=== PATIENT | female | born 1975 | race Caucasian/White ===

== ENCOUNTER 2025-01-13 08:45 | Outpatient (REF) | payer MEDICAID, SELFPAY ==
--- OUTSIDE RECORDS SUMMARY | 2025-01-19 09:04 | XMS_ITS | Clinical Summary ---
Author Organization [facility] Address [address] [facility] [address] [place] [address] Care Team Providers Care Validation Technician Name Role Phone López Simms MD Primary Care Prov ider Allergies No known active allergies Medications folic acid (Folvite) 1 MG tablet Take 1 tablet by mouth at bed time. 2 Active ibuprofen 400 MG tablet take 1 tablet by oral route every 4 - 6 hours as needed for pain 2 Active thiamine (Vitamin B-1) 100 MG tablet Take 1 tablet by mouth. 2 Active loratadine-pseud oephedrine ER (Loratadine-D 12HR) 5-120 MG 12 hr tabletIndication s:Viral upper respiratory tract infection Take 1 tablet by mouth 2 times daily for 15 days. Do not crush, chew, or split. 30 tablet 3 Active clotrimazole (Lotrimin) 1 % creamIndications :Seborrheic dermatitis Apply topically 2 times daily. 60 g 3 Active hydrocortisone 2.5 % creamIndications :Seborrheic dermatitis Apply topically 2 times daily. 60 g 3 Active D3 Super Strength 50 MCG (1999) capsule TOME BASHIR [place] 90 capsule 3 3 Active venlafaxine XR (Effexor XR) 150 MG 24 hr capsuleIndicatio ns:Major depressive disorder with psychotic features (CMS/HCC) TOME BASHIR [place] 90 capsule 1 3 Active risperiDONE (RisperDAL) 1 MG tabletIndication s:Major depressive disorder with psychotic features (CMS/HCC) TOME BASHIR TABLETA POR VIA ORAL AL ACOSTARSE 90 tablet 1 3 Active famotidine (Pepcid) 20 MG tablet Take 1 tablet (20 mg) by mouth 2 times daily. 60 tablet 1 5 01/14/20 26 Active amoxicillin (Amoxil) 500 MG capsule Take 2 capsules (1,000 mg) by mouth 2 times daily for 14 days. 56 capsule 5 01/29/20 25 Active clarithromycin (Biaxin) 500 MG tablet Take 1 tablet (500 mg) by mouth 2 times daily for 14 days. 28 tablet 5 01/29/20 25 Active omeprazole (PriLOSEC) [address] capsule Take 1 capsule (20 mg) by mouth before breakfast and before evening meal for 14 days. Do not crush or chew. 28 capsule 5 01/29/20 25 Active Hospital, Clinic, or Other Facility Administered Medication Ordered Dose Route Frequency Start Date End Date Status aspirin chewable tablet 324 mgIndications:Chest pain, unspecified type 324 mg PO Once 01/13/2025 01/13/2025 Ended Active Problems Problem Noted Date Diagnosed Date H. pylori infection 01/14/2025 Skin mole 10/30/2023 Assessment & Plan (10/30/2023 11:14 PM EDT): Lesion near nose bridge, will refer to dermatology for evaluation and removal Viral upper respiratory tract infection 07/02/19 Assessment & Plan (07/02/2022 3:40 PM EST): Recommended supportive care. Will send decongestant. F/u with PCP PRN and rtc if worsening symptoms Seborrheic dermatitis 07/02/2022 Assessment & Plan (07/02/2022 3:40 PM EST): Likely SD, will send 2 prong approach with steroid and antifungal. Major depressive disorder with psychotic feature s 06/12/2022 Assessment & Plan (07/24/2022 9:46 AM EST): Lifetime history of depression, trauma history. Previous suicide attempt in her 20s. Presenting symptoms included nightmares, mild auditory hallucinations (her name called). Doing very well. Auditory hallucinations resolved. Continue current med regimen: Risperidone 1 mg at bedtime, Venlafaxine XR 150 mg once daily. She will F/U with therapist as usual. F/U with me in 6-8 weeks. She agrees with the plan. Assessment & Plan (06/12/2022 10:01 AM EST): Lifetime history of depression, trauma history. Previous suicide attempt in her 20s. Presenting symptoms included nightmares, mild auditory hallucinations (her name called). Generally doing well, although intermittent mild passive SI without plan/intent. Auditory hallucinations resolved. Continue current med regimen: Risperidone 1 mg at bedtime, Venlafaxine XR 150 mg once daily. She will F/U with [facility] as planned. F/U with me in 6-8 weeks. She agrees with the plan. Alcohol abuse 06/12/2022 Assessment & Plan (07/24/2022 9:46 AM EST): She has had minimal alcohol recently and has good insight into the effects of alcohol on her mood. Assessment & Plan (06/12/2022 10:03 AM EST): Reviewed with patient that drinking made her feel much worse emotionally and she has motivation to avoid this. Discussed strategies to avoid alcohol in social situations. Iron deficiency anemia due to chronic blood loss 07/02/2018 Assessment & Plan (10/30/2023 11:15 PM EDT): Will order new labs for guidance of thrapy Assessment & Plan (09/28/2022 10:16 AM EDT): Patient taking iron replacement daily, no episode of profuse bleeding, she had her colonoscopy done in 10/13 for 10 years, saw ob-crop picker. Will place order for new cbc and iron for guidance of therapy Assessment & Plan (08/09/2022 10:01 AM EST): Patient on oral replacement, no side effects from treatment, pending follow up with ob-crop picker next month, will follow up in 2 months to repeat blood work Assessment & Plan (05/28/2022 11:16 AM EST): Will order new labs, refers having moderate vaginal blood loss in her mentrual period. Obesity 07/02/2018 Vitamin D deficiency 07/02/2018 Assessment & Plan (05/28/2022 11:18 AM EST): New labs will be ordered for guidance of therapy Resolved Problems Problem Noted Date Diagnosed Date Resolved Date Mood disorder 07/02/2018 06/12/2022 Assessment & Plan (05/28/2022 11:19 AM EST): Followed at psychopharmacologic clinic, denied suidicdal/homicidal ideas, will order TSH Encounters Date Type Department Care Team Description 01/14/2025 Orders Only [facility] [address] [place] [phone] Ray Edge MD H. pylori infection (Primary Dx) 01/14/2025 Results Follow-Up [facility] [address] [address] Ray Edge MD Helicobacter pylori Antigen, EIA, Stool 01/13/2025 9:20 AM EDT Office Visit [facility] [address] [phone] Ray Edge MD Epigastric pain (Primary Dx); Chest pain, unspecified type 01/13/2025 Telephone [facility] MED[facility] [address] [place] [phone] Mariela Gutierrez, SUPERVISOR [employer] Expect 01/13/2025 Travel 01/12/2025 Telephone [facility] [address] [place], [place] [phone] López Simms MD Nurse Triage from Last 3 Months Immunizations Immunization Administration Dates Next Due INFLUENZA INJECTABLE QUADRIV ALANT CCIIV4 MDCK Multi-dose vial 06/22/2019 Influenza injectable quadriv alent IIV4 with preservative 04/18/2018,06/10/2017 Influenza injectable quadriv alent preservative free 05/31/2022,03/30/2021,04/07/2020,2016,07/02/2016,08/25/2015 Moderna Covid-19 Vaccine 12+ 07/20/2021,11/12/19 21,10/14/2020 Tdap 08/25/2015 Family History Medical History Relation Name Comments Diabetes Father Hypertension Father Throat cancer Maternal Grandmother Diabetes Mother Hypertension Mother Colon cancer Mother's Brother Coronary artery disease Sister Relation Name Status Comments Father Maternal Grandmother Mother Mother's Brother Sister Social History Tobacco Use Types Packs/Day Years Used Date Smoking Tobacco: Never Passive Smoke Exposure: Never Smokeless Tobacco: Never Tobacco Cessation:Counseling Given: Not Answered Alcohol Use Standard Drinks/Week Comments Never 0 (1 standard drink = 0.6 oz pur e alcohol) Depression Answer Date Recorded Patient Health Questionnaire-9 Score 2 10/28/2023 Patient Health Questionnaire-9 Score 2 10/28/2023 Last PHQ-9: Questionnaire Data Not on file 0 10/28/2023 Housing Stability Answer Date Recorded What is your housing situation today? I have mone prieto 10/21/[address] you li ve. Do you have problems with any of the following? None of the above 10/21/2023 Food Insecurity Answer Date Recorded Within the past 12 months, y ou worried that your food would run out before you got money to buy more: Never True 10/21/2023 Within the past 12 months,th e food you bought just didn't last and you didn't have enough money to get more: Never True Transportation Answer Date Recorded In the past 12 months, has l ack of transportation kept you from medical appts, meetings, work or from getting things needed for daily living? No 10/21/2023 Utilities Answer Date Recorded In the past 12 months, has t he electric, gas, oil or water company threatened to shut off services in your home? No 10/21/2023 Depression Answer Date Recorded Patient Health Questionnaire-2 Score 2 10/28/2023 Comments Unknown Sex and Gender Information Value Date Recorded Sex Assigned at Female 04/23/2022 10:16 AM EDT Legal Sex Female 10:16 AM EDT Gender Identity Female 04/23/2022 10:16 AM EDT Sexual Orientation Straight 04/23/2022 10 :16 AM EDT Last Filed Vital Signs Vital Sign Reading Time Taken Comments Blood Pressure 133/88 01/13/2025 8:59 AM EDT Pulse 85 01/13/2025 8:59 AM EDT Temperature 36.7 C (98.1 F) 01/13/2025 8:59 AM EDT Respiratory Rate 20 01/13/2025 8:59 AM EDT Oxygen Saturation 98% 01/13/2025 8:59 AM EDT Inhaled Oxygen Concentration - - Weight 76.3 kg (168 lb 3.2 oz) 01/13/2025 8:59 A M EDT Height 157.5 cm (5' 2 ) 05/13/2024 8:45 AM EST Body Mass Index 30.76 05/13/2024 8:45 AM EST Plan of Treatment Health Maintenance Due Date Last Done Comments CT Colonography 1973 FIT DNA/Cologuard 1975 FIT 1975 FOBT 1975 Sigmoidoscopy 1975 Disability Screening 1973 Alcohol/Substance Use Screening 1985 Family Planning (PISQ) 1988 Hepatitis B Vaccines (1 of 3 - 19+ 3-dose series) 1992 Pneumococcal Vaccine: 50+ Years (1 of 1 - PCV) 2023 COVID-19 Vaccine ( - season) 2024 07/20/2021, 11/11/2020, 10/14/2020 SDOH Screening 10/20/2024 10/21/2023 Depression Screening 10/27/2024 10/28/2023, 10/28/19 24 Influenza Vaccine (#1) 2025 , 07/03/2024, 06/10/2023, Additional history exists DTaP/Tdap/Td Vaccines (2 - Td or Tdap) 08/24/2025 08/25/2015 Pap Smear 09/04/2025 09/04/2022 Tobacco Screening 01/13/2026 01/13/2025 Mammogram 09/03/2026 09/03/2024, 07/26/2023 Cervical Cancer Screening 09/05/2027 HPV/Cotest 09/05/2027 09/04/2022 Lipid Panel 10/30/2028 10/31/2023, 0511/2021, 04/05/2020 Colonoscopy 10/19/2031 10/18/2021 Colorectal Cancer Screening 10/19/2031 RSV Patients and Patients Aged 60 years or older (1 - 1-dose 75+ series) 2048 Zoster Vaccines Completed 12/07/2023, 09/18/2023 HIV Screening Completed 02/27/2024, 12/23, 09/09/2023, Additional history exists Hepatitis C Screening Completed 02/27/2024 , 01/14/2024, 09/09/2023, Additional history exists HIB Vaccines Aged Out No longer eligi ble based on patient's age to complete this topic HPV Vaccines Aged Out No longer eligi ble based on patient's age to complete this topic Hepatitis A Vaccines Aged Out No long er eligible based on patient's age to complete this topic IPV Vaccines Aged Out No longer eligi ble based on patient's age to complete this topic Meningococcal B Vaccine Aged Out No l onger eligible based on patient's age to complete this topic Meningococcal Vaccine Aged Out No henny shawna eligible based on patient's age to complete this topic RSV under 20 months Aged Out No longe r eligible based on patient's age to complete this topic Rotavirus Vaccines Aged Out No longer eligible based on patient's age to complete this topic Procedures Procedure Name Priority Date/Time Associated Diagnosis Comments ECG 12-LEAD Routine 01/13/2025 1:25 PM EDT Chest pain, unspecified type HELICOBACTER PYLORI AG, EIA, STOOL Routine 01/13/2025 10:50 AM EDT Epigastric pain ECG 12-LEAD Routine 01/13/2025 10:40 AM EDT Chest pain, unspecified type BI MAMMOGRAM SCREENING TOMOSYNTHESIS BILATERAL Routine 09/03/2024 9:58 AM EDT HEPATITIS C ANTIBODY Routine 02/27/2024 2:24 PM EDT HIV 1/2 ANTIGEN/ANTIBODY, FOURTH GENERATION W/RFL Routine 02/27/2024 2:24 PM EDT LIPID PANEL, STANDARD Routine 10/31/2023 12:46 PM EDT Class 1 obesity due to excess calories without serious comorbidity with body mass index (BMI) of 33.0 to 33.9 in adult HPV MRNA E6/E7 REFLEX TO HPV 16, 18/45 Routine 09/04/2022 10:52 AM EDT Iron deficiency anemia due to chronic blood loss PAP SMEAR Routine 09/04/2022 10:52 AM EDT Iron deficiency anemia due to chronic blood loss HM COLONOSCOPY Routine 10/18/2021 12:16 PM EDT from Last 3 Months or Most Recently Relevant to Health Maintenance Results * (ABNORMAL) Helicobacter pylori??Antigen, EIA, Stool (01/13/2025 10:50 AM EDT) H pylori Ag Stool SEE NOTE(A) [facility] Comment:HELICOBACTER PYLORI AG, EIA, STOOL Micro Number: [id number] Test Status: Final Specimen Source: Stool Specimen Quality: Adequate H.pylori Ag: Detected Reference Range: Not DetectedTHIS TEST WAS PERFORMED AT:[facility] [address] [phone] OLVERA MD Stool Rectal contents / Unknown 01/13/2025 10:50 AM EDT 01/13/2025 1:28 PM EDT us Ray Edge MD LAB BODY FLUIDS AND STOOLS ORDER KATE Final Result [facility] [address] [place] [phone] * ECG 12 lead (01/13/2025 10:40 AM EDT) us Ray Edge MD ECG ORDERABLES Final Result * BI Mammogram Screening Tomosynthesis Bilateral (09/03/2024 9:58 AM EDT) Anatomical Region Laterality Modality Breast Bilateral Mammography 09/03/2024 9:58 AM EDT Narrative 09/11/2024 3:56 PM EDT [address] [place] [address] Mammography Report Signed Patient: Sherlyn Caicedo MR#: [id number] : 1975 Acct:[id number] Age/Sex: 49 / F ADM Date: 09/03/24 Loc: HO.MAMMO Attending Dr: López Sol MD Ordering Physician: López Simms MD Res ults: 1Negative Date of Service: 09/03/24 Follow Up: 1 Year From Orig inal Mammogram Procedure(s): MM tomosynthesis screening BI Accession Number(s): [id number] cc: López Simms MD EXAMINATION: MM SCREENING DIGITAL BREAST TOMOSYNTHESIS, BILATERAL CLINICAL INFORMATION: Screening. Asymptomatic. COMPARISON: Mammography: Comparison is made with available priors TECHNIQUE: Digital breast mammography with tomosynthesis is performed in both the craniocaudal and mediolateral oblique views along with computer-aided detection (CAD). FINDINGS: The breasts are heterogeneously dense, which may obscure small masses (ACR BI-RADS breast composition Category c). There are no significant masses, abnormal calcifications, or other abnormalities. MM/MM tomosynthesis screening BI IMPRESSION: No mammographic evidence of malignancy. ASSESSMENT: BI-RADS BI-RADS 1 - Negative RECOMMENDATION: Routine annual mammography screening. 1 year F/U This examination should not preclude the clinical evaluation of a suspicious palpable abnormality. This patient's information was entered into a reminder system with a target due date for their next mammogram. Electronically signed by: Evie Macias DO 09/11/2024 03:53 PM EDT Dictated By: Evie Macias DO Signed By: <Electronically signed by Evie Macias DO in OV> 09/11/24 1553 DD/ 0958 TD/TT: 09/03/24 1012 Retail Shift Manager: Procedure Note Donotuseinterpreter, Image - 09/11/[address] [place] [address] Mammography Report Signed Patient: Antonio Caicedo#: [id number] : 1975Acct:[id number] Age/Sex: 49 / FADM Date: 09/03/24 Loc: HO.MAMMO Attending Dr: López Sol MD Ordering Physician: López Simms ults: 1Negative Date of Service: 09/03/24Follow Up: 1 Year From Orig ina Mammogram Procedure(s): MM tomosynthesis screening BI Accession Number(s): [id number] cc: López Simms MD EXAMINATION: MM SCREENING DIGITAL BREAST TOMOSYNTHESIS, BILATERAL CLINICAL INFORMATION: Screening. Asymptomatic. COMPARISON: Mammography: Comparison is made with available priors TECHNIQUE: Digital breast mammography with tomosynthesis is performed in both the craniocaudal and mediolateral oblique views along with computer-aided detection (CAD). FINDINGS: The breasts are heterogeneously dense, which may obscure small masses (ACR BI-RADS breast composition Category c). There are no significant masses, abnormal calcifications, or other abnormalities. MM/MM tomosynthesis screening BI IMPRESSION: No mammographic evidence of malignancy. ASSESSMENT: BI-RADS BI-RADS 1 - Negative RECOMMENDATION: Routine annual mammography screening. 1 year F/U This examination should not preclude the clinical evaluation of a suspicious palpable abnormality. This patient's information was entered into a reminder system with a target due date for their next mammogram. Electronically signed by: Evie Macias DO 09/11/2024 03:53 PM EDT Dictated By: Evie Macias DO Signed By: <Electronically signed by Evie Macias DO in OV> 09/11/24 1553 DD/ 0958 TD/TT: 09/03/24 1012 Retail Shift Manager: us López Sol MD IMG BI PROCEDURES Final Result * Hepatitis C Ab (02/27/2024 2:24 PM EDT) Hepatitis C Antibody Nonreactive Nonreactive [facility] Comment:Antibodies to HCV no t detected; does not exclude early acuteHCV infection. 02/27/2024 2:24 PM EDT 02/27/2024 4:29 PM EDT Generic External Data Provider LAB BLOOD ORDERAB LES Final Result Performing Organization Address [facility]/ZIP Co de Phone Number [facility] [address] [place] [phone] * HIV-1/2 Antigen and Antibodies, Fourth Generation, with Reflexes (02/27/2024 2:24 PM EDT) HIV AB/AG Nonreactive Nonreactive [facility] Comment:HIV-1 p24 Ag and/or HIV-1/HIV-2 Ab not detected.A test result that is nonreactive does not exclude thepossibility of exposure to or infection with HIV-1 and/orHIV-2. Nonreactive results in this assay for individualswith prior exposure to HIV-1 and/or HIV-2 may be due toantigen and antibody levels that are below the limit ofdetection of this assay.The [employer] HIV Ag/Ab Combo assay result andsupplemental assay results should be interpreted inconjunction with the patient's clinical presentation,history and other laboratory results. If the results areinconsistent with clinical evidence, additional testing issuggested to confirm the result. 02/27/2024 2:24 PM EDT 02/27/2024 4:29 PM EDT us Generic External Data Provider LAB BLOOD ORDERAB LES Final Result Performing Organization Address [facility]/ZIP Co de Phone Number [facility] [address] [place] [phone] * (ABNORMAL) Lipid Panel, Standard (10/31/2023 12:46 PM EDT) Triglycerides 135 <150 mg/dL [facility] Comment:Desirable Triglyceri de: less than 150 mg/dLBorderline High Triglyceride 150-199 mg/dLHigh Triglyceride: 200-499 mg/dLVery High Triglyceride: greater than or equal to 5OO mg/dL Cholesterol 220(H) <200 mg/dL [facility] Comment:Desirable Cholestero l: less than 200 mg/dLBorderline High Cholesterol: 200-239 mg/dLHigh Cholesterol: greater than 239 mg/dL LDL Cholesterol Calculated 124(H) <100 mg/dL [facility] Comment:Desirable LDL: less than 100 mg/dLNear Optimal/Above Optimal LDL: 110- 129 mg/dLBorderline High LDL: 130-159 mg/dLHigh LDL: 160-189 mg/dLVery High LDL: greater than or equal to 190 mg/dL HDL Cholesterol 69 >40 mg/dL [facility] Comment:Desirable HDL: great er than 40 mg/dL Note: This HDL assay may give artificially low results in patients with liver disease. Blood Venous blood specimen / Unknown 10/31/2023 12:46 PM EDT 10/31/2023 2:39 PM EDT López Sol MD LAB BLOOD ORDERABL ES Final Result [facility] [address] [place] [phone] * HPV mRNA E6/E7 w/Reflex to HPV Genotypes 16, 18/45 (09/04/2022 10:52 AM EDT) HPV nRNA E6/E7 Not Detected Not Detected [facility] Comment:Methodology: Transcr iption-Mediated AmplificationThis assay detects E6/E7 viral messenger RNA (mRNA) from 14high-risk HPV types (16,18,31,33,35,39,45,51,52,56,58,59,66,68).Cervical sources are required for HPV testing.If a vaginal source from a patient who has had atotal hysterectomy with removal of cervix wassubmitted, please contact the testing laboratoryfor alternative testing options.For additional information, please refer tohttp://education.Embrace/faq/WDN024q5(This link if provided for information/educational purposes only.)THIS TEST WAS PERFORMED AT:[facility] [place] [phone] OLVERA MD HPV mRNA E6/E7 TNP [facility] HPV 16 RNA TNP [facility] HPV 18/45 RNA TNP [facility] 09/04/2022 10:5 2 AM EDT 09/04/2022 12:45 PM EDT us [facility] External Provider LAB CYT OLOGY ORDERABLES Final Result [facility] [address] [place] [phone] * Pap Smear (09/04/2022 10:52 AM EDT) 09/04/2022 10:5 2 AM EDT 09/04/2022 12:45 PM EDT Narrative [facility] - 09/10/2022 2:18 PM EDT ----- ------- Name: Sherlyn Caicedo Age/Sex: 47/F : 1975 Unit#: [id number] Attend Dr: Jacobo Alex MD Re09/04/22 Status: DEP REF Location: HO.LNP Disch: ----- ------- SPEC : [id number] RECD: 09/04/22 STATUS: MALGORZATA MURPHY NUM: [id number] [place]: 09/04/22-[address] [facility] [address]: Jacobo Alex MD ENTERED: 09/04/22-1506 SP TYPE: Pap Smr OTHR DR: López Simms MD ORDERED: Pap Smear Interpretation Satisfactory for evaluation. Negative for intraepithelial lesion or malignancy. Coccobacilli consistent with shift in vaginal nga. HPV mRNA E6/E7: NOT DETECTED This assay detects E6/E7 viral messenger RNA (mRNA) from 14 high-risk HPV types (16, 18, 31, 33, 35, 39, 45, 51, 52, 56, 58, 59, 66, 68) HPV testing performed by [facility], [place], [place]. See reference laboratory portion of the EMR for entire report. Clinical Information LMP: 09/04/2022 Previous PAP test: 2018, Unknown Material Received ThinPrep-Cervical Copies To: López Simms MD [address] [place] [phone] Jacobo Alex MD [address] [place] [address] [address] ----- ------- Signed (signature on file) Nini Navarrete 09/10/22 1418 ----- ------- END OF REPORT [facility] External Provider LAB CYT OLOGY ORDERABLES Final Result [facility] [address] [place] [phone] * Hm Colonoscopy (10/18/2021 12:16 PM EDT) us Historical Provider HEALTH MAINTENANCE Final Result from Last 3 Months or Most Recently Relevant to Health Maintenance Insurance [employer] Care Teams Validation Technician Relationship Specialty Start Date End Date López Simms MD [address] [place] [phone] PCP - General Internal Medicine 11/17/19
== END 2025-01-13 08:46 | disposition home or self-care (01) ==
LOC: HO.LNP 08:45
PROVIDERS: Visit Provider Emergency Medicine
DX: R10.13 Epigastric pain (principal)
CPT/HCPCS: 87338

== ENCOUNTER 2025-01-13 11:09 | Emergency (ER) | payer MEDICAID, SELFPAY ==
--- NOTE | 2025-01-13 | ECG_ITS ---
Test Reason : CP Blood Pressure : */* mmHG Vent. Rate : 67 BPM Atrial Rate : 67 BPM P-R Int : 118 ms QRS Dur : 74 ms QT Int : 386 ms P-R-T Axes : 24 -14 21 degrees QTcB Int : 407 ms Normal sinus rhythm Minimal voltage criteria for LVH, may be normal variant ( R in aVL ) Borderline ECG No previous ECGs available Referred By: Generic ED Physician Electronically Signed By: Jon Miller
--- NOTE | ~2025-01-13 | XR_ITS ---
EXAMINATION: XR CHEST 2 VIEWS HISTORY: chest pain COMPARISON: There are no prior studies available for comparison. FINDINGS: PA and lateral views of the chest are submitted. The lungs are expanded and clear. There is no pleural effusion, pneumothorax, or pulmonary vascular congestion. The heart is normal in size. The bones are intact. XR/XR chest 2V IMPRESSION: Normal examination of the chest. Electronically signed by: Chester Witt MD 01/13/2025 11:40 AM EDT
[2025-01-13 11:20] VITALS: BP 125/87; PULSE 72; RESP 22; TEMP 36.4; O2SAT 99; BMI 31.3
--- NOTE | 2025-01-13 11:28 | ED_ITS ---
HPI - Chest Pain General Chief Complaint: Chest Pain Stated Complaint: Chest Pain Time Seen by Provider: 01/13/25 11:28 Source: patient Mode of arrival: ambulatory Limitations: no limitations History of Present Illness ED Provider: Silva Fisher PA-C HPI narrative: Patient is a 49 year old assigned male at with no reported medical history presenting to the emergency department today with epigastric pain. Patient states that she has pain when she swallows because she feels like things come up and causes pain. Patient denies any dizziness, lightheadedness, nausea, vomiting, fever, chills, blurry vision, double vision, loss of vision, difficulty breathing, shortness of breath, back pain, night sweats, pain with urination, increased urinary frequency, increased urinary urgency, blood in her urine or stool, syncope or a near syncopal episode, recent trauma or falls, bowel incontinence, bladder incontinence, or any other complaints at this time. Related Data Previous Rx's ?Medication ?Instructions ?Recorded omeprazole 20 mg capsule,delayed 20 mg PO DAILY 7 days #7 caps 01/13/25 release Allergies Allergy/AdvReac Type Severity Reaction Status Date / Time No Known Allergies Allergy Verified 01/13/25 11:21 Review of Systems 2 Constitutional: Constitutional: Reports no additional constitutional complaints, Denies chills, Denies fever(s) and Denies night sweats Eyes: Eyes: Reports no additional eye complaints, Denies blurry vision, Denies change in vision, Denies diplopia, Denies eye discharge, Denies loss of vision and Denies eye pain ENT: Denies dizziness Cardiovascular: Cardiovascular: Reports no additional cardiovascular complaints, Denies chest pain, Denies lightheadedness, Denies Loss of Consciousness and Denies dyspnea Respiratory: Respiratory: Reports no additional respiratory complaints and Denies dyspnea Gastrointestinal: Gastrointestinal: Reports no additional gastrointestinal complaints, Reports abdominal pain (epigastric pain), Denies melena, Denies hematochezia, Denies change in bowel habits and Denies change in stool character Genitourinary: Genitourinary: Denies hematuria, Denies urinary frequency, Denies dysuria, Denies urinary incontinence, Denies urinary hesitancy and Denies urinary urgency Musculoskeletal: Musculoskeletal: Reports no additional musculoskeletal complaints, Denies numbness and Denies tingling Neurologic: Denies dizziness, Denies loss of vision, Denies numbness and Denies tingling Psychiatric: Psychiatric: Reports no additional psychiatric complaints Endocrine: Endocrine: Reports no additional endocrine complaints Hematologic/Lymphatic: Hematologic/Lymphatic: Reports no additional hematologic/lymphatic complaints Allergic/Immunologic: Allergic/Immunologic: Reports no additional allergic/immunologic complaints PMFSH Past Medical History Attestation statement: The following information was validated with the patient. Source: old records reviewed and nursing notes reviewed Physical Exam 2 Vital Signs: Vital Signs: Last Vital Signs Temp 97.6 F 01/13/25 13:39 Pulse 72 01/13/25 13:39 Resp 22 H 01/13/25 13:39 BP 125/87 01/13/25 13:39 Pulse Ox 99 01/13/25 13:39 O2 Del Method Room Air 01/13/25 13:39 BMI result Body Mass Index 31.3 Const: General: cooperative, no acute distress, alert and awake Nutritional Appearance: well nourished Orientation/consciousness: patient oriented x3 HEENT: Head: Yes normal to inspection and Yes atraumatic Ears: hearing grossly normal bilaterally and external ears normal General nose exam: Normal external nose present, no nasal discharge noted and no epistaxis Face and sinus: Yes normal facial exam, No abrasion and No laceration Mouth: Normal oral and palatal mucosa present, no drooling and no muffled voice Eyes: General: appearance normal, both eyes and all related structures P eriorbital: periorbital findings normal Eyelids: Yes eyelids normal C onjunctivae: conjunctivae normal Pupils: Equal, round and reactive pupils present EOM: EOMs intact bilaterally Neck: Neck: Yes normal visual inspection, Yes full ROM and Yes no lymphadenopathy Resp: Effort & Inspection: normal respiratory effort and able to speak in complete sentences Neuro: General: patient oriented x3, moves all extremities and CN's II-XI intact bilaterally Cranial nerves: Yes Equal, round and reactive pupils present Cognition (Neuro): normal cognition Extrem: General: Yes normal to inspection, Yes full ROM and Yes capillary refill normal Psych: Appearance: grossly normal Mental Status: mental status grossly normal Affect: normal affect Attitude: cooperative Thought process: N ormal thought process present Thought content: Normal thought content present Insight: Good insight present (Psych) Medications Administered Discontinued Medications Generic Name Dose Route Start Last Admin Trade Name Freq PRN Reason Stop Dose Admin Al Hydroxide/Mg Hydroxide 15 ml 01/13/25 11:29 01/13/25 11:47 Magnesium Hydrox/Alum Hydrox 30 Ml Oral.Susp PO 01/13/25 11:30 15 ml ONCE ONE Administration Pantoprazole Sodium 40 mg 01/13/25 11:29 01/13/25 11:48 Pantoprazole Sodium 40 Mg/10 Ml Vial IVPUSH 01/13/25 11:30 40 mg ONCE ONE Administration Medical Decision Making Medical Decision Making [facility] Narrative: Patient is a 49 year old assigned male at with no reported medical history presenting to the emergency department today with epigastric pain. Patient states that she has pain when she swallows because she feels like things come up and causes pain. Patient's physical exam was unremarkable. Patient's blood work was unremarkable. Patient's EKG was unremarkable. Patient's chest x-ray showed no acute process. Patient's clinical presentation is suspicious for GERD / acid reflux vs. atypical chest pain. I explained my physical exam findings as well as all test results to the patient. I answered all questions asked by the patient. I stressed the importance of the patient taking her medication as directed (either prescribed or as the over the counter packaging recommends). I stressed the importance of the patient following up with her primary care provider. I stressed the importance of the patient returning to the emergency department immediately if her symptoms were to worsen or if she were to develop any dizziness, shortness of breath, difficulty breathing, chest pain, blurry vision, loss of vision, nausea, vomiting, abdominal pain, fever, chills, back pain, or any other complaints. Patient verbalized agreement and understanding with this treatment plan and discharge. Differential Diagnosis Differential Diagnoses: The differential diagnosis associated with the presentation includes Epigastric pain GERD Atypical chest pain NSTEMI STEMI Admission/Observation Consideration of admission/observation: Escalation of care including admission/observation considered Patient would have been admitted to the hospital had her work up had any findings where hospital admission was appropriate and her clinical presentation warranted hospital admission. Lab Data [facility] Lab Attestation statement: I reviewed the patient's lab results. My interpretation of these results are in the [facility] Rationale portion of this note. 01/13/25 11:43 01/13/25 11:43 Labs: Lab Results 01/13/25 01/13/25 01/13/25 Range/Units 11:42 11:43 12:57 WBC 6.5 (4.8-10.8) X10*3/uL RBC 4.80 (4.20-5.50) X10*6/uL Hgb 12.2 (12.0-16.0) g/dl Hct 38.4 (37.0-47.0) % MCV 80.0 (80.0-98.0) fL MCH 25.4 L (27.0-33.0) pg MCHC 31.8 (31.0-35.0) g/dl RDW 15.3 (11.0-16.0) % Plt Count 245 (160-400) X10*3/uL MPV 11.0 (9.4-12.3) fL Immature Gran % (Auto) 0.2 (0.0-0.4) % Neut % (Auto) 63.1 (45-73) % Lymph % (Auto) 27.1 (20-40) % [place] % (Auto) 6.3 (2-11) % Eos % (Auto) 2.5 (0-4) % Baso % (Auto) 0.8 (0-2) % Lymph # (Auto) 1.8 (1.2-4.9) X10*3/uL [place] # (Auto) 0.4 (0.1-1.2) X10*3/uL Eos # (Auto) 0.2 (0.0-0.4) X10*3/uL Baso # (Auto) 0.1 (0.0-0.2) X10*3/uL Abs Immat Gran (auto) 0.01 (0.00-0.03) X10*3/uL Absolute Neuts (auto) 4.1 (2.0-8.3) x10*3/uL Absolute Nucleated RBC 0.000 (0.0-0.012) X10*3/uL Nucleated RBC % (auto) 0.0 (0.0-0.2) /100WBC Hold Blue Top SEE NOTE Sodium 141 (135-145) mmol/L Potassium 4.2 (3.3-5.1) mmol/L Chloride 104 (96-108) mmol/L Carbon Dioxide 29 (22-29) mmol/L Anion Gap 12 (12-20) BUN 15 (9-16) mg/dL Creatinine 0.85 (0.5-1.4) mg/dL Estim Creat Clear Calc 75.5 Estimated GFR > 60 Random Glucose 93 (60-115) mg/dL Calcium 9.7 (8.4-10.2) mg/dL Magnesium 2.0 (1.6-2.6) mg/dL Total Bilirubin 0.3 (0.0-1.0) mg/dL AST 30 (5-31) U/L ALT 29 (0-31) U/L Alkaline Phosphatase 94 (39-117) U/L Troponin I High Sens < 2.7 < 2.7 (<3.5-17.0) ng/L B-Natriuretic Peptide 13 (<100) pg/mL Total Protein 7.9 (6.5-8.0) g/dL Albumin 4.7 (3.5-5.0) g/dL Influenza Type A (PCR) NEGATIVE (Negative) Influenza Type B (PCR) NEGATIVE (Negative) RSV RNA Qual (PCR) NEGATIVE (Negative) SARS-CoV-2 RNA (RT-PCR) NEGATIVE (Negative) S. pyogenes GrpA ELIU Negative (Negative) Independent Interpretation I performed an independent interpretation of an: EKG and Plain X-Ray Interpretation: My interpretation is in agreement with the radiologist's impression of this imaging study. L EXAMINATION: XR CHEST 2 VIEWS HISTORY: chest pain COMPARISON: There are no prior studies available for comparison. FINDINGS: PA and lateral views of the chest are submitted. The lungs are expanded and clear. There is no pleural effusion, pneumothorax, or pulmonary vascular congestion. The heart is normal in size. The bones are intact. XR/XR chest 2V IMPRESSION: Normal examination of the chest. Electronically signed by: Chester Witt MD 01/13/2025 11:40 AM EDT Dictated By: Chester Witt MD Signed By: Electronically signed by Chester Witt MD 01/13/25 1140 I independently interpreted this EKG and am in agreement with the below findings: Vent. Rate: 67 BPM Atrial Rate: 67 BPM P-R Int: 118 ms QRS Dur: 74 ms QT Int: 386 ms P-R-T Axes: 24 -14 21 degrees QTcB Int: 407 ms Normal sinus rhythm Minimal voltage criteria for LVH, may be normal variant ( R in aVL ) Borderline ECG No previous ECGs available DD/ 1113 Radiology Impression Discussion of test interpretation with radiology: I have reviewed the radiologist's reading. Discharge Plan Discharge Clinical Impression: Atypical chest pain, GERD (gastroesophageal reflux disease) Patient Disposition: Home, Self-Care Instructions: Chest Pain (DC), GERD (Gastroesophageal Reflux Disease) (DC) Additional Instructions: Your work up today was reassuring that you have NO emergent cause for your symptoms. Los ex?menes que le realizaron hoy le confirmaron que NO tiene ninguna causa emergente para radha s?ntomas. Follow up with your primary care provider. Return to the emergency department immediately if your symptoms worsen or if you develop any dizziness, shortness of breath, difficulty breathing, chest pain, blurry vision, loss of vision, nausea, vomiting, abdominal pain, fever, chills, back pain, or any other complaints. Alex?seguimiento?con royal m?dico de atenci?n primaria. Acuda inmediatamente al servicio de urgencias si radha s?ntomas empeoran o si presenta falta de aliento, dificultad para respirar, dolor tor?cico, mareos, aturdimiento, dolor de espalda, dolor abdominal, fiebre, escalofr?os o cualquier otro s?ntoma. If you do not have a primary care provider - call any of the below numbers to establish and follow up with a primary care provider. Si no tiene un proveedor de atenci?n primaria, llame a cualquiera de los n?meros que aparecen a continuaci?n para establecer y hacer seguimiento con un proveedor de atenci?n primaria. [facility] ([place]) [phone] [place] [address] [place], [address] [facility] ([address] [place]) [phone] [address] [facility], [address] [facility], [address] [facility] ([address] [place]) [phone] [place] [address], [address] [facility], [address] [facility] ([place]) [phone] [place] [address] [address] [facility], [address] [facility] [phone] [place] [address], [address] Please see the information below about our Patient Portal. If you are not yet enrolled in the [facility] Patient Portal, you will receive an enrollment email invitation following your visit to any [facility] setting. You may also self-enroll in the Patient Portal by visiting our website: [email or web address] The following information is required to access the Patient Portal: - Your [facility] Medical Record Number - Your personal home email address (must match what is in your electronic medical record, Registration staff can assist with this) - Name - Date of Capabilities of the Patient Portal: - Message some providers - View upcoming appointments - Access your health summary, medical history, and visit history - View current conditions and allergies - View procedure and lab results - View your medications, including guidelines, side effects, and precautions - Complete pre-appointment questionnaires requested by your provider - Ready summary reports of your office visits and procedures To access the Patient Portal Mobile [employer], follow these directions: - Search [employer] in the [employer] Store or [employer] Store - Download the Murali - Search for [facility] - Enter your login/password Portal del paciente Si usted no esta inscrito en el portal de pacientes de [facility], recibira fabiola invitacion de inscripcion despues de royal visita al [facility] o al [facility] via correo electronico. Tambien puede inscribirse voluntariamente en el portal de pacientes visitando nuestra pagina web: [email or web address] La siguiente informacion sera requerida para acceder al portal: - Royal romero de historia medica de [facility] - Royal direccion de correo electronico personal - Nombre - Fecha de nacimiento Capacidades: Las siguientes capacidades estan disponibles en el portal de pacientes: - Enviar mensajes a algunos doctores - Verificar proximas citas - Acceso a royal historial de natasha, registro medico e historial de visitas - Dipak las condiciones actuales y alergias dipak procedimientos y resultados del laboratorio - Dipak radha medicamentos, incluyendo las pautas - Efectos secundarios y precauciones - Completar o llenar formularios / cuestionarios de - Citas solicitadas por royal doctor - Leer los resumenes de reportes medicos de radha visitas y procedimientos Salome acceder a la aplicacion movil: - [employer] en la [employer] Store o [employer] Store - Descargue la aplicacion - [facility] - Ingrese royal nombre de usuario / Contrasena Prescriptions: New omeprazole 20 mg capsule,delayed release(DR/EC) 20 mg PO DAILY 7 Days Qty: 7 0RF Interventions: ED Discharge Assessment Last Done: 01/13/25 13:39 Discharge Date/Time: 01/13/25 13:41 Print Language: Turkmen
[2025-01-13] MEDS: Magnesium Hydrox/Alum Hydrox 30 ML ORAL.SUSP 15 ML PO (11:47)
[2025-01-13 11:50] LABS: MANUAL DIFF FLAG NO
[2025-01-13 11:52] LABS: Hematocrit 38.4 % (37.0-47.0); Hemoglobin 12.2 g/dl (12.0-16.0); Imm Gran Abs Auto 0.01 X10*3/uL (0.00-0.03); Imm Gran Pct Auto 0.2 % (0.0-0.4); Lymphocytes Absolute Auto 1.8 X10*3/uL (1.2-4.9); Mean Corpuscular HGB Conc 31.8 g/dl (31.0-35.0); Mean Corpuscular Hemoglobin 25.4 pg (27.0-33.0); Mean Corpuscular Volume 80.0 fL (80.0-98.0); NRBC Abs Auto 0.000 X10*3/uL (0.0-0.012); NRBC Pct Auto 0.0 /100WBC (0.0-0.2); Platelet Count 245 X10*3/uL (160-400); Red Blood Count 4.80 X10*6/uL (4.20-5.50); White Blood Count 6.5 X10*3/uL (4.8-10.8)
[2025-01-13 12:01] LABS: IDNOW Serial# 55D5AD1C; Strep A Nucleic Acid Negative (Negative)
[2025-01-13 12:06] LABS: Alanine Aminotransferase 29 U/L (0-31); Albumin Level 4.7 g/dL (3.5-5.0); Alkaline Phosphatase 94 U/L (39-117); Anion Gap 12 (12-20); Aspartate Amino Transferase 30 U/L (5-31); Blood Urea Nitrogen 15 mg/dL (9-16); Calcium 9.7 mg/dL (8.4-10.2); Carbon Dioxide 29 mmol/L (22-29); Chloride 104 mmol/L (96-108); Creatinine Clr Calc Pharmacy 75.5; Estimated Glomerular Filt Rate > 60; Magnesium 2.0 mg/dL (1.6-2.6); Potassium 4.2 mmol/L (3.3-5.1); Sodium 141 mmol/L (135-145); Total Protein 7.9 g/dL (6.5-8.0)
[2025-01-13 12:11] LABS: B Type Natriuretic Peptide 13 pg/mL (<100)
[2025-01-13 12:14] LABS: Troponin-I High Sensitivity < 2.7 ng/L (<3.5-17.0)
[2025-01-13 12:35] LABS: Resp Syncy Virus RNA Qual PCR NEGATIVE (Negative); SARS COV2 PCR INHOUSE NEGATIVE (Negative)
[2025-01-13 13:25] LABS: Troponin-I High Sensitivity < 2.7 ng/L (<3.5-17.0)
[2025-01-13 13:39] VITALS: BP 125/87; PULSE 72; RESP 22; TEMP 36.4; O2SAT 99
== END 2025-01-13 13:41 | disposition home or self-care (01) ==
PROVIDERS: Physician Assistant Medical; Emergency Provider Emergency Medicine
DX: R07.89 Other chest pain (principal); K21.9 Gastro-esophageal reflux disease without esophagitis; R10.13 Epigastric pain; Z03.818 Encounter for observation for suspected exposure to other biological agents ruled out; Z79.899 Other long term (current) drug therapy
CPT/HCPCS: 36415; 71046; 80053; 83735; 83880; 84484; 85025; 87338; 87637; 87651; 93005; 96374; 99284; J2470

== ENCOUNTER → 2025-01-13 11:13 | Outpatient (BNV) | payer MEDICAID, SELFPAY | PROVIDERS: Emergency Provider Emergency Medicine; Visit Provider Internal Medicine Cardiovascular Disease | DX: R07.9 Chest pain, unspecified (principal) | CPT/HCPCS: 93010 ==

== ENCOUNTER → 2025-01-13 11:28 | Outpatient (BNV) | payer MEDICAID, SELFPAY | PROVIDERS: Visit Provider Radiology Diagnostic Radiology | DX: R07.9 Chest pain, unspecified (principal) | CPT/HCPCS: 71046 ==

== ENCOUNTER 2025-02-08 16:51 | Outpatient (REF) | payer MEDICAID, SELFPAY ==
[2025-02-08 20:41] LABS: Bacterial Vaginosis PCR POSITIVE (Negative); Candida Group PCR DETECTED (Not Detect); Candida glab krusei PCR NOT DETECTED (Not Detect); Trichomonas vaginalis PCR NOT DETECTED (Not Detect)
== END 2025-02-08 16:52 | disposition home or self-care (01) ==
LOC: HO.HHCLNP 16:51
PROVIDERS: Visit Provider Internal Medicine
DX: Z11.2 Encounter for screening for other bacterial diseases (principal); R10.84 Generalized abdominal pain
CPT/HCPCS: 81515

== ENCOUNTER 2025-03-10 08:44 | Outpatient (REF) | payer MEDICAID, SELFPAY ==
--- OUTSIDE RECORDS SUMMARY | 2025-03-08 09:30 | XMS_ITS | Encounter Summary ---
Author Organization [employer] Address [address] [place] [address] Care Team Providers Care Trainmaster Name Role Phone López Simms MD Primary Care Prov ider Encounter Details Date Type Department Care Team ([facility] st Contact Info) Description 03/08/2025 9:30 AM EDT Telemedicine [facility] [address] [place], [place] [phone] López Simms MD [address] [place] [address] Hepatic steatosis (Primary Dx) Social History Tobacco Use Types Packs/Day Years Used Date Smoking Tobacco: Never Passive Smoke Exposure: Never Smokeless Tobacco: Never Alcohol Use Standard Drinks/Week Comments Never 0 (1 standard drink = 0.6 oz pur e alcohol) Depression Answer Date Recorded Patient Health Questionnaire-9 Score 4 03/08/2025 Patient Health Questionnaire-9 Score 4 03/08/2025 Last PHQ-9: Questionnaire Data Not on file 0 03/08/2025 Housing Stability Answer Date Recorded What is your housing situation today? I have mone ida 03/08/[address] you li ve. Do you have problems with any of the following? None of the above 03/08/2025 Food Insecurity Answer Date Recorded Within the past 12 months, y ou worried that your food would run out before you got money to buy more: Never True 03/08/2025 Within the past 12 months,th e food you bought just didn't last and you didn't have enough money to get more: Never True Transportation Answer Date Recorded In the past 12 months, has l ack of transportation kept you from medical appts, meetings, work or from getting things needed for daily living? No 03/08/2025 Utilities Answer Date Recorded In the past 12 months, has t he electric, gas, oil or water company threatened to shut off services in your home? No 03/08/2025 Depression Answer Date Recorded Patient Health Questionnaire-2 Score 4 03/08/2025 Internet Access Answer Date Recorded Internet Access Q1 Yes 03/08/2025 Internet Access Q2 Not on file 03/08/2025 Comments Unknown Sex and Gender Information Value Date Recorded Sex Assigned at Female 04/23/2022 10:16 AM EDT Legal Sex Female 10:16 AM EDT Gender Identity Female 04/23/2022 10:16 AM EDT Sexual Orientation Straight 04/23/2022 10 :16 AM EDT documented as of this encounter Functional Status * Over the past 2 weeks, how often have you been bothered by any of the following problems? Question Answer Date of Assessment Author Patient Health Questionnaire-2 Score 4 02/22 9:16 AM EDT Kindra Jacques MA * Little interest or pleasure in doing things Answer Date of Assessment Author More than half the days 03/08/2025 9:16 AM EDT Kindra Francisco MA * Feeling down, depressed, or hopeless Answer Date of Assessment Author More than half the days 03/08/2025 9:16 AM ZENYT Kindra Francisco MA * Trouble falling or staying asleep, or sleeping too much Answer Date of Assessment Author Not at all 03/08/2025 9:16 AM ZENYT Gerri Jacques MA * Feeling tired or having little energy Answer Date of Assessment Author Not at all 03/08/2025 9:16 AM EDT Gerri Jacques MA * Poor appetite or overeating Answer Date of Assessment Author Not at all 03/08/2025 9:16 AM Gerri Ibarra MA * Feeling bad about yourself - or that you are a failure or have let yourself or your family down Answer Date of Assessment Author Not at all 03/08/2025 9:16 AM Gerri Ibarra MA * Trouble concentrating on things, such as reading the newspaper or watching television Answer Date of Assessment Author Not at all 03/08/2025 9:16 AM Gerri Ibarra MA * Moving or speaking so slowly that other people could have noticed? Or the opposite - being so fidgety or restless that you have been moving around a lot more than usual. Answer Date of Assessment Author Not at all 03/08/2025 9:16 AM Gerri Ibarra MA * Thoughts that you would be better off or hurting yourself in some way Answer Date of Assessment Author Not at all 03/08/2025 9:16 AM Gerri Ibarra MA * Patient Health Questionnaire-9 Score Answer Date of Assessment Author 4 03/08/2025 9:16 AM Gerri Ibarra MA * How difficult have these problems made it for you to do your work, take care of things at home, or get along with other people? Answer Date of Assessment Author Somewhat difficult 03/08/2025 9:16 AM Kindra Ibarra MA documented as of this encounter Plan of Treatment Scheduled Orders Name Type Priority Associated Diagnoses Orde r Schedule TSH W/Reflex to FT4 Lab Routine Hepatic steatosis Expected: 03/08/2025 (Approximate), Expires: 03/08/2026 Comprehensive Metabolic Panel Lab Routine Hepatic steatosis Expected: 03/08/2025 (Approximate), Expires: 03/08/2026 Vitamin B12 (Cobalamin) and Folate Panel, Serum Lab Routine Hepatic steatosis Expected: 03/08/2025 (Approximate), Expires: 03/08/2026 documented as of this encounter Visit Diagnoses Diagnosis Hepatic steatosis- Primary Other chronic nonalcoholic liver disease documented in this encounter Additional Health Concerns Assessment Noted Time PHQ-9 Depression Total Score: 4 03/08/20 25 9:16 AM EDT documented as of this encounter Care Teams Trainmaster Relationship Specialty Start Date End Date López Simms MD [address] [place] [address] [place] [phone] PCP - General Internal Medicine 11/17/19 documented as of this encounter
--- OUTSIDE RECORDS SUMMARY | 2025-03-10 10:12 | XMS_ITS | Encounter Summary ---
Author Organization [employer] Address [address] [place] [address] Care Team Providers Care Solid Die Cutter Name Role Phone López Simms MD Primary Care Prov ider Encounter Details Date Type Department Care Team ([facility] st Contact Info) Description 06/14/2022 Orders Only [facility] MED[facility] [address] [place] [address] López Simms MD [address] [place] [phone] Iron deficiency anemia due to chronic blood loss (Primary Dx) Social History Tobacco Use Types Packs/Day Years Used Date Smoking Tobacco: Never Smokeless Tobacco: Never Alcohol Use Standard Drinks/Week Comments Yes 0 (1 standard drink = 0.6 oz pur e alcohol) Comments Unknown Sex and Gender Information Value Date Recorded Sex Assigned at Female 04/23/2022 10:16 AM EDT Legal Sex Female 10:16 AM EDT Gender Identity Female 04/23/2022 10:16 AM EDT Sexual Orientation Straight 04/23/2022 10 :16 AM EDT documented as of this encounter Plan of Treatment Not on file documented as of this encounter Procedures Procedure Name Priority Date/Time Associated Diagnosis Comments SYPHILIS SCREEN Routine 09/04/2022 11:08 AM EDT Iron deficiency anemia due to chronic blood loss HEPATITIS C ANTIBODY Routine 09/04/2022 11:08 AM EDT Iron deficiency anemia due to chronic blood loss HIV ANTIBODY/ANTIGEN (YAMILA CASIANO) Routine 09/04/2022 11:08 AM EDT Iron deficiency anemia due to chronic blood loss HEPATITIS B SURFACE ANTIGEN, EIA Routine 09/04/2022 11:08 AM EDT Iron deficiency anemia due to chronic blood loss CHLAMYDIA/N. GONORRHOEAE RNA, TMA, UROGENITAL Routine 09/04/2022 11:00 AM EDT Iron deficiency anemia due to chronic blood loss HPV MRNA E6/E7 REFLEX TO HPV 16, 18/45 Routine 09/04/2022 10:52 AM EDT Iron deficiency anemia due to chronic blood loss PAP SMEAR Routine 09/04/2022 10:52 AM EDT Iron deficiency anemia due to chronic blood loss SURESWAB(R) ADVANCED VAGINITIS, TMA Routine 09/04/2022 10:36 AM EDT Iron deficiency anemia due to chronic blood loss documented in this encounter Results * Hepatitis B surface antigen, EIA (09/04/2022 11:08 AM EDT) Pathologist [facility] Hepatitis B Surface Ag Negative Negative [facility] 09/04/2022 11:0 8 AM EDT 09/04/2022 11:08 AM EDT us [facility] External Provider LAB BLO OD ORDERABLES Final Result [facility] [address] [place] [phone] * HIV Ab/Ag (YAMILA CASIANO) (09/04/2022 11:08 AM EDT) HIV AB/AG Nonreactive Nonreactive [facility] Comment:HIV-1 p24 Ag and/or HIV-1/HIV-2 Ab not detected.A test result that is nonreactive does not exclude thepossibility of exposure to or infection with HIV-1 and/orHIV-2. Nonreactive results in this assay for individualswith prior exposure to HIV-1 and/or HIV-2 may be due toantigen and antibody levels that are below the limit ofdetection of this assay.The [employer] Creaser HIV Ag/Ab Combo assay result andsupplemental assay results should be interpreted inconjunction with the patient's clinical presentation,history and other laboratory results. If the results areinconsistent with clinical evidence, additional testing issuggested to confirm the result. 09/04/2022 11:0 8 AM EDT 09/04/2022 11:08 AM EDT [facility] External Provider LAB BLO OD ORDERABLES Final Result Performing Organization Address [facility] Co de Phone Number [facility] [address] [place] [phone] * Hepatitis C Ab (09/04/2022 11:08 AM EDT) Hepatitis C Antibody Nonreactive Nonreactive [facility] Comment:Antibodies to HCV no t detected; does not exclude early acuteHCV infection. 09/04/2022 11:0 8 AM EDT 09/04/2022 11:08 AM EDT [facility] External Provider LAB BLO OD ORDERABLES Final Result Performing Organization Address [facility] Co de Phone Number [facility] [address] [place] [phone] * Syphilis Screen (09/04/2022 11:08 AM EDT) Syphilis Screen Nonreactive Nonreactive [facility] 09/04/2022 11:0 8 AM EDT 09/04/2022 11:08 AM EDT [facility] External Provider LAB BLO OD ORDERABLES Final Result Performing Organization Address [facility] Co de Phone Number [facility] [address] [place] [phone] * Chlamydia/N. Gonorrhoeae RNA, TMA, Urogenitial (09/04/2022 11:00 AM EDT) CT PCR NOT DETECTED Not Detect. [facility] Comment:A not detected test result does not exclude the possibilityof infection because test results can be affected byimproper specimen collection, concurrent antibiotic therapy,or the number of organisms in the specimen which may bebelow the sensitivity of the test. As with many diagnostictests, results from the Xpert CT/NG assay should beinterpreted in conjunction with other laboratory andclinical data available to the clinician.Xpert CT/NG performance has not been evaluated in patientsless than 14 years of age. The assay should not be used forthe evaluationof suspected sexual abuse or for other medico-legalindications. Additional testing is recommended in anycircumstance when false positive or false negative resultscould lead to adverse medical, social or psychologicalconsequences. NG PCR NOT DETECTED Not Detect. [facility] Comment:A not detected test result does not exclude the possibilityof infection because test results can be affected byimproper specimen collection, concurrent antibiotic therapy,or the number of organisms in the specimen which may bebelow the sensitivity of the test. As with many diagnostictests, results from the Xpert CT/NG assay should beinterpreted in conjunction with other laboratory andclinical data available to the clinician.Xpert CT/NG performance has not been evaluated in patientsless than 14 years of age. The assay should not be used forthe evaluationof suspected sexual abuse or for other medico-legalindications. Additional testing is recommended in anycircumstance when false positive or false negative resultscould lead to adverse medical, social or psychologicalconsequences. 09/04/2022 11:0 0 AM EDT 09/04/2022 11:36 AM EDT Narrative [facility] - 09/04/2022 1:45 PM EDT Urine us [facility] Exter nal Provider LAB MICROBIOLOGY - GENERAL ORDERABLES Final Result [facility] [address] [place] [phone] * Pap Smear (09/04/2022 10:52 AM EDT) 09/04/2022 10:5 2 AM EDT 09/04/2022 12:45 PM EDT Narrative [facility] - 09/10/2022 2:18 PM EDT ----- ------- Name: Sherlyn Caicedo Age/Sex: 47/F : 1975 Unit#: [id number] Attend Dr: Jacobo Alex MD Re09/04/22 Status: DEP REF Location: HO.LNP Disch: ----- ------- SPEC : [id number] RECD: 09/04/22-1245 STATUS: MALGORZATA MURPHY NUM: [id number] [place]: 09/04/22-[address] [facility] [address]: Jacobo Alex MD ENTERED: 09/04/22-341 SP TYPE: Pap Smr OT DR: López Simms MD ORDERED: Pap Smear Interpretation Satisfactory for evaluation. Negative for intraepithelial lesion or malignancy. Coccobacilli consistent with shift in vaginal nga. HPV mRNA E6/E7: NOT DETECTED This assay detects E6/E7 viral messenger RNA (mRNA) from 14 high-risk HPV types (16, 18, 31, 33, 35, 39, 45, 51, 52, 56, 58, 59, 66, 68) HPV testing performed by [facility], [place], [place]. See reference laboratory portion of the EMR for entire report. Clinical Information LMP: 09/04/2022 Previous PAP test: 2018, Unknown Material Received ThinPrep-Cervical Copies To: López Simms MD [address] [place] [address] Jacobo Alex MD [address] [place] [address] Dr. Wilson [address] [place] [address] ----- ------- Signed (signature on file) Nini Navarrete 09/10/22 1418 ----- ------- END OF REPORT [facility] External Provider LAB [facility] ORDERABLES Final Result [facility] [address] [place] [phone] * HPV mRNA E6/E7 w/Reflex to HPV Genotypes 16, 18/45 (09/04/2022 10:52 AM EDT) HPV nRNA E6/E7 Not Detected Not Detected [facility] Comment:Methodology: Transcr iption-Mediated AmplificationThis assay detects E6/E7 viral messenger RNA (mRNA) from 14high-risk HPV types (16,18,31,33,35,39,45,51,52,56,58,59,66,68).Cervical sources are required for HPV testing.If a vaginal source from a patient who has had atotal hysterectomy with removal of cervix wassubmitted, please contact the testing laboratoryfor alternative testing options.For additional information, please refer [email or web address]/faq/[email or web address](This link if provided for information/educational purposes only.)THIS TEST WAS PERFORMED AT:[facility] [place] [phone] OLVERA MD HPV mRNA E6/E7 [facility] HPV 16 RNA [facility] HPV 18/45 RNA [facility] 09/04/2022 10:5 2 AM EDT 09/04/2022 12:45 PM EDT [facility] External Provider LAB CYT OLOGY ORDERABLES Final Result Performing Organization Address [facility]/ZIP Co de Phone Number [facility] [address] [place] [phone] * (ABNORMAL) SureSwab?? Advanced Vaginitis, TMA (09/04/2022 10:36 AM EDT) Trichomonas DNA Probe Negative Negative [facility] Gardnerella DNA Probe Positive(A) Negative [facility] Glenny DNA Probe Negative Negative [facility] 09/04/2022 10:3 6 AM EDT 09/04/2022 12:05 PM EDT [facility] Exter nal Provider LAB BODY FLUIDS AND STOOLS ORDERABLES Final Result Performing Organization Address [facility]/ZIP Co de Phone Number [facility] [address] [place] [phone] documented in this encounter Visit Diagnoses Diagnosis Iron deficiency anemia due to chronic blood loss- Primary Iron deficiency anemia secondary to blood loss (chronic) documented in this encounter Additional Health Concerns Assessment Noted Time PHQ-9 Depression Total Score: 6 06/12/20 22 9:10 AM EST documented as of this encounter Care Teams Solid Die Cutter Relationship Specialty Start Date End Date López Simms MD [address] [place] [phone] PCP - General Internal Medicine 11/17/19 documented as of this encounter
--- OUTSIDE RECORDS SUMMARY | 2025-03-10 10:12 | XMS_ITS | Encounter Summary ---
Author Organization [email or web address] Address [address] [place] [address] Care Team Providers Care Billing Auditor Name Role Phone López Simms MD Primary Care Prov ider Reason for Visit * Reason Comments Med Change Request Encounter Details Date Type Department Care Team ([facility] st Contact Info) Description 01/22/2025 Refill [facility] [address] [place] [address] [phone] Ray Edge MD [address] [place] [address] Social History Tobacco Use Types Packs/Day Years [...] on file documented as of this encounter Visit Diagnoses Not on filedocumented in this encounter Additional Health Concerns Assessment Noted Time PHQ-9 Depression Total Score: 2 10/28/19 24 9:26 AM EDT documented as of this encounter Care Teams Billing Auditor Relationship Specialty Start Date End Date López Simms MD [address] [place] [phone] PCP - General Internal Medicine 11/17/19 documented as of this encounter
--- OUTSIDE RECORDS SUMMARY | 2025-03-10 10:12 | XMS_ITS | Encounter Summary ---
Author Organization [employer] Address [address] [place] [address] Care Team Providers Care Kinesiotherapist Name Role Phone López Simms MD Primary Care Prov ider Encounter Details Date Type Department Care Team (Latest Contact Info) Description 03/08/2025 Travel Social History Tobacco Use Types Packs/Day Years [...] housing situation today? I have mone prieto 03/08/[address] you li [...] Health Questionnaire-2 Score 4 02/22 9:16 AM ZENYT Kindra Jacques MA * Little interest or pleasure in doing things Answer Date of Assessment Author More than half the days 03/08/2025 9:16 AM EDT Kindra Francisco MA * Feeling down, depressed, or hopeless Answer Date of Assessment Author More than half the days 03/08/2025 9:16 AM EDT Kindra Francisco MA * Trouble falling or staying asleep, or sleeping too much Answer Date of Assessment Author Not at all 03/08/2025 9:16 AM Gerri Ibarra MA * Feeling tired or having little energy Answer Date of Assessment Author Not at all 03/08/2025 9:16 AM Gerri Ibarra MA * Poor appetite or overeating Answer [...] documented as of this encounter Care Teams Kinesiotherapist Relationship Specialty Start Date End Date López Simms MD [address] [place] [phone] PCP - General Internal Medicine 11/17/19 documented as of this encounter
--- OUTSIDE RECORDS SUMMARY | 2025-03-10 10:12 | XMS_ITS | Clinical Summary ---
Author Organization [employer] Address [address] [facility] [address] [place] [address] Care Team Providers Care Architectural Model Maker Name Role Phone López Simms MD Primary Care Prov ider Allergies No known active allergies Medications folic acid (Folvite) 1 MG tablet Take 1 tablet by mouth at bed time. 11/25/19 22 Active ibuprofen 400 MG tablet take 1 tablet by oral route every 4 - 6 hours as needed for pain 10/24/19 22 Active thiamine (Vitamin B-1) 100 MG tablet Take 1 tablet by mouth. 11/25/19 22 Active loratadine-pseu doephedrine ER (Loratadine-D 12HR) 5-120 MG 12 hr tabletIndicatio ns:Viral upper respiratory tract infection Take 1 tablet by mouth 2 times daily for 15 days. Do not crush, chew, or split. 30 tablet 07/02/19 23 Active clotrimazole (Lotrimin) 1 % creamIndication s:Seborrheic dermatitis Apply topically 2 times daily. 60 g 07/02/19 23 Active hydrocortisone 2.5 % creamIndication s:Seborrheic dermatitis Apply topically 2 times daily. 60 g 07/02/19 23 Active D3 Super Strength 50 MCG (1999) capsule TOME BASHIR [place] 90 capsule 3 10/17/19 23 Active venlafaxine XR (Effexor XR) 150 MG 24 hr capsuleIndicati ons:Major depressive disorder with psychotic features (CMS/HCC) TOME BASHIR [place] 90 capsule 1 02/27/20 23 Active risperiDONE (RisperDAL) 1 MG tabletIndicatio ns:Major depressive disorder with psychotic features (CMS/HCC) TOME BASHIR TABLETA POR VIA ORAL AL ACOSTARSE 90 tablet 1 04/22/20 23 Active omeprazole (PriLOSEC) [address] capsule Take 1 capsule (20 mg) by mouth before breakfast and before evening meal for 14 days. Do not crush or chew. 28 capsule 01/15/20 25 Active famotidine (Pepcid) 20 MG tablet TAKE 1 TABLET BY MOUTH TWICE A DAY 180 tablet 1 02/11/20 25 Active omeprazole (PriLOSEC) [address] capsuleIndicati ons:Generalized abdominal pain TAKE 1 CAPSULE BY MOUTH ONCE PER DAY. 90 capsule 02/12/20 25 Active famotidine (Pepcid) 20 MG tablet Take 1 tablet (20 mg) by mouth 2 times daily. 60 tablet 1 01/14/20 25 025 Discontinued Omeprazole 20 MG tablet delayed-release Indications:Gen eralized abdominal pain Take 1 tablet (20 mg) by mouth Once per day. 30 tablet 1 02/09/20 25 025 Discontinued omeprazole (PriLOSEC) [address] capsuleIndicati ons:Generalized abdominal pain TAKE 1 TABLET (20 MG) BY MOUTH ONCE PER DAY. 90 capsule 02/11/20 25 025 Discontinued(Re order (will not trigger notification to Pharmacy)) fluconazole (Diflucan) 150 MG tablet Take 1 tablet (150 mg) by mouth Once per day for 1 day. 1 tablet 02/09/20 25 025 metroNIDAZOLE (Metrogel) 0.75 % vaginal gel Insert into the vagina at bedtime for 7 days. 70 g 02/09/20 25 025 Active Problems Problem Noted Date Diagnosed Date Calculus of gallbladder with out cholecystitis without obstruction 02/28/2025 Hepatic steatosis 02/28/2025 H. pylori infection 01/14/2025 Skin mole 10/30/2023 [...] mg once daily. She will F/U with [facility] as planned. F/U with me [...] she had her colonoscopy done in 10/13 good for 10 years, saw ob-supervisor composing room. Will place order for new cbc and iron for guidance of therapy Assessment & Plan (08/09/2022 10:01 AM EST): Patient on oral replacement, no side effects from treatment, pending follow up with ob-supervisor composing room next month, will follow up in 2 [...] Encounters Date Type Department Care Team Description 03/08/2025 9:30 AM EDT Telemedicine [facility] [address] [place] [address] López Simms MD Hepatic steatosis (Primary Dx) 03/08/2025 Travel 03/05/2025 Telephone [facility] [address] [place] [address] López Simms MD Chart Prep 02/28/2025 Orders Only [facility] [address] [place] [address] Ray Edge MD Calculus of gallbladder without cholecystitis without obstruction (Primary Dx); Hepatic steatosis 02/10/2025 Refill [facility] [address] [place] [address] López Simms MD Generalized abdominal pain 02/08/2025 9:20 AM EDT Office Visit [facility] [address] [place] [phone] Rosi El MD Generalized abdominal pain (Primary Dx); Vaginal discharge 02/08/2025 Results Follow-Up [facility] [address] [place] [address] Rosi El MD Bacterial Vaginosis 02/08/2025 Refill [facility] [address] [place] [phone] Rosi El MD Generalized abdominal pain 02/08/2025 Travel 02/07/2025 Refill [facility] [address] [place] [phone] Ray Edge MD 01/22/2025 Refill [facility] [address] [place] [phone] Ray Edge MD 01/19/2025 Orders Only [facility] [address] [place] [phone] Ray Edge MD H. pylori infection (Primary Dx) 01/14/2025 Orders Only [facility] [address] [place] [phone] Ray Edge MD H. pylori infection (Primary Dx) 01/14/2025 Results Follow-Up [facility] [address] [place] [phone] Ray Edge MD Helicobacter pylori Antigen, EIA, Stool, US Abdomen Complete 01/13/2025 9:20 AM EDT Office Visit [facility] [address] [place] [phone] Ray Edge MD Epigastric pain (Primary Dx); Chest pain, unspecified type 01/13/2025 Telephone [facility] [address] [place] [phone] Mariela Gutierrez, POWER BRAKE OPERATOR Expect 01/13/2025 Travel 01/12/2025 Telephone [facility] [address] [place] [address] López Simms MD Nurse Triage from Last 3 Months Immunizations Immunization Administration Dates Next Due INFLUENZA INJECTABLE QUADRIV ALANT CCIIV4 MDCK Multi-dose vial 06/22/2019 Influenza injectable quadriv alent IIV4 with preservative 04/18/2018,06/10/2017 Influenza injectable quadriv alent preservative free 06/10/2023,05/31/2022,03/30/2021,2019,06/10/2017,07/02/2016,08/25/2015 Influenza, IIV3, injectable 07/03/2024 Influenza, seasonal, injecta ble, preservative free 07/03/2024 Moderna Covid-19 Vaccine 12+ 07/20/2021,11/12/19 21,10/14/2020 Tdap 08/25/2015 Zoster, Recombinant 12/07/2023,09/18/2023 Family History Medical History Relation Name Comments [...] Sign Reading Time Taken Comments Blood Pressure 117/77 02/08/2025 9:07 AM EDT Pulse 70 02/08/2025 9:07 AM EDT Temperature 36.6 C (97.9 F) 02/08/2025 9:07 AM EDT Respiratory Rate 16 02/08/2025 9:07 AM EDT Oxygen Saturation 99% 02/08/2025 9:07 AM EDT Inhaled Oxygen Concentration - - Weight 76.7 kg (169 lb) 02/08/2025 9:07 AM EDT Height 157.5 cm (5' 2 ) 05/13/2024 8:45 AM EST Body Mass Index 30.91 05/13/2024 8:45 AM EST Plan of Treatment Health Maintenance Due Date Last Done Comments CT Colonography 1975 FIT DNA/Cologuard 1975 FIT 1975 FOBT 1975 Sigmoidoscopy 1975 Family Planning (PISQ) 1988 Hepatitis A Vaccines (1 of 2 - Risk 2-dose series) 1992 COVID-19 Vaccine ( season) 2025 07/20/2021, 11/11/2020, 10/14/2020 Hepatitis B Vaccines (2 of 2 - CpG 2-dose series) 03/10/2025 02/10/2025 DTaP/Tdap/Td Vaccines (2 - Td or Tdap) 08/24/2025 08/25/2015 Pap Smear 09/04/2025 09/04/2022 Tobacco Screening 02/08/2026 02/08/2025 Alcohol/Substance Use Screening 03/08/2026 03/08/2025 Depression Screening 03/08/2026 03/08/2025, 03/08/20 Disability Screening 03/08/2026 03/08/2025 SDOH Screening 03/08/2026 03/08/2025 Mammogram 09/03/2026 09/03/2024, 07/26/2023 Cervical Cancer Screening 09/05/2027 HPV/Cotest 09/05/2027 09/04/2022 Lipid Panel 10/30/2028 10/31/2023, 10/22, 04/05/2020 Colonoscopy 10/19/2031 10/18/2021 Colorectal Cancer Screening 10/19/2031 Zoster Vaccines Completed 12/07/2023, 09/18/2023 HIV Screening Completed 02/27/2024, 12/23, 09/09/2023, Additional history exists Hepatitis C Screening Completed 02/27/2024 , 01/14/2024, 09/09/2023, Additional history exists Influenza Vaccine Completed 02/10/2025, , 07/03/2024, Additional history exists Pneumococcal Vaccine: 50+ Years Completed 02/10/2025 RSV Patients and Patients Aged 60 years or older Completed 02/10/2025 HIB Vaccines Aged Out No longer eligi [...] Procedure Name Priority Date/Time Associated Diagnosis Comments US ABDOMEN COMPLETE Routine 02/24/2025 2 :14 PM EDT Epigastric pain BACTERIAL VAGINOSIS PANEL Routine 02/08/2025 10:05 AM EDT Generalized abdominal pain ECG 12-LEAD Routine 01/13/2025 1:25 PM EDT [...] Recently Relevant to Health Maintenance Results * US Abdomen Complete (02/24/2025 2:14 PM EDT) Anatomical Region Laterality Modality Abdomen Ultrasound 02/24/2025 2:14 PM EDT Narrative 02/24/2025 2:16 PM EDT [facility] [place] [address] Ultrasound Report Signed Patient: Sherlyn Caicedo MR#: [id number] : 1975 Acct:[id number] Age/Sex: 49 / F ADM Date: 02/24/25 Loc: HO.HMGCX Attending Dr: Ray Edge MD Ordering Physician: RAY EDGE MD Date of Service: 02/24/25 Procedure(s): US abdomen complete Accession Number(s): [id number] cc: RAY EDGE MD; López Simms MD Reason for Exam: UPPER ABD DISCOMFORT, WORSE AFTER EATING CLINICAL HISTORY: UPPER ABD DISCOMFORT, WORSE AFTER EATING US abdomen complete Comparison: None provided Findings: The pancreas is normal. The visualized aorta and inferior vena cava are normal caliber. The liver is normal in size, right lobe length is 15.7 cm. Diffusely increased echogenicity of the liver parenchyma. No discrete lesion is visualized in the imaged liver. No intrahepatic bile duct dilatation. The common duct is 2 mm in diameter. Underdistended gallbladder contains 2.3 cm stone in the midportion, no apparent mobility is seen during the exam, no gallbladder wall thickening, negative sonographic Michel's sign. The main portal vein is patent with antegrade flow. The right kidney is normal, 10.5 cm in length. The left kidney is normal, 10.1 cm in length. The spleen is normal, 10.4 cm in length. No free fluid in the abdomen. Impression: 1. Echogenic liver parenchyma is nonspecific, commonly seen in steatosis or chronic hepatitis. 2. Cholelithiasis, no acute inflammation. This document has been electronically signed by: Rosamaria Mcgee MD on 02/24/2025 14:14:47 Dictated By: Rosamaria Mcgee MD Signed By: <Electronically signed by Rosamaria Mcgee MD in OV> 02/24/25 1415 DD/ 1414 TD/TT: 02/24/25 1414 Natural Gas Engineer: Procedure Note Donotuseinterpreter, Image - 02/24/2025 [facility] [place] [address] Ultrasound Report Signed Patient: Antonio Caicedo#: [id number] : 1975Acct:[id number] Age/Sex: 49 / FADM Date: 02/24/25 Loc: HO.HMGCX Attending Dr: Ray Edge MD Ordering Physician: RAY EDGE MD Date of Service: 02/24/25 Procedure(s): US abdomen complete Accession Number(s): [id number] cc: RAY EDGE MD; López Simms MD Reason for Exam: UPPER ABD DISCOMFORT, WORSE AFTER EATING CLINICAL HISTORY: UPPER ABD DISCOMFORT, WORSE AFTER EATING US abdomen complete Comparison: None provided Findings: The pancreas is normal. The visualized aorta and inferior vena cava are normal caliber. The liver is normal in size, right lobe length is 15.7 cm. Diffusely increased echogenicity of the liver parenchyma. No discrete lesion is visualized in the imaged liver. No intrahepatic bile duct dilatation. The common duct is 2 mm in diameter. Underdistended gallbladder contains 2.3 cm stone in the midportion, no apparent mobility is seen during the exam, no gallbladder wall thickening, negative sonographic Michel's sign. The main portal vein is patent with antegrade flow. The right kidney is normal, 10.5 cm in length. The left kidney is normal, 10.1 cm in length. The spleen is normal, 10.4 cm in length. No free fluid in the abdomen. Impression: 1. Echogenic liver parenchyma is nonspecific, commonly seen in steatosis or chronic hepatitis. 2. Cholelithiasis, no acute inflammation. This document has been electronically signed by: Rosamaria Mcgee MD on 02/24/2025 14:14:47 Dictated By: Rosamaria Mcgee MD Signed By: <Electronically signed by Rosamaria Mcgee MD in OV> 02/24/25 1415 DD/ 1414 TD/TT: 02/24/25 1414 Natural Gas Engineer: us Ray Edge MD IM US PROCEDURES Final Result * (ABNORMAL) Bacterial Vaginosis (02/08/2025 10:05 AM EDT) TRICHOMONAS VAGINALIS DETECTION BY PCR NOT DETECTED Not Detect [facility] BACTERIAL VAGINOSIS DETECTION BY PCR POSITIVE(A) Negative [facility] Comment:The BV organism targ ets of the Xpert Xpress MVP test can becommensal in women; Xpert Xpress MVP positive results forbacterial vaginosis should be considered in conjunction withother clinical and patient information to determine thedisease status. Organisms that are not detected by the XpertXpress MVP test have also been reported to be associatedwith BV and aerobic vaginitis.The Xpert Xpress MVP test performance has not been evaluatedin patients under the age of 14. GLENNY GROUP DETECTION BY PCR DETECTED(A) Not Detect [facility] Glenny glab krusei PCR NOT DETECTED Not Detect [facility] Swab Vaginal structure / Unknown 02/08/2025 10:05 AM EDT 02/08/2025 4:51 PM EDT us Rosi El MD LAB MICROBIOLOGY - GENERAL OR DERABLES Final Result Performing Organization Address [facility] Co de Phone Number [facility] [address] [place] [address] [phone] * (ABNORMAL) Helicobacter pylori??Antigen, EIA, Stool (01/13/2025 10:50 AM EDT) H pylori Ag Stool SEE NOTE(A) [facility] Comment:HELICOBACTER PYLORI AG, EIA, STOOL Micro Number: [id number] Test Status: Final Specimen Source: Stool Specimen Quality: Adequate H.pylori Ag: Detected Reference Range: Not DetectedTHIS TEST WAS PERFORMED AT:[facility] [place] [phone] OLVERA MD Stool Rectal contents / Unknown 01/13/2025 10:50 AM EDT 01/13/2025 1:28 PM EDT us Ray Edge MD LAB BODY FLUIDS AND STOOLS ORDER KATE Final Result Performing Organization Address [facility] Co de Phone Number [facility] [address] [place] [address] [phone] * ECG 12 lead (01/13/2025 10:40 AM EDT) us Ray Edge MD ECG ORDERABLES Final Result * BI Mammogram Screening Tomosynthesis Bilateral (09/03/2024 9:58 AM EDT) Anatomical Region Laterality Modality Breast Bilateral Mammography 09/03/2024 9:58 AM EDT Narrative 09/11/2024 3:56 PM EDT [facility] [address] [place], [place] [address] Mammography Report Signed Patient: Sherlyn Caicedo MR#: [id number] : 1975 Acct:[id number] Age/Sex: 49 / F ADM Date: 09/03/24 Loc: HO.MAMMO Attending Dr: López Sol MD Ordering Physician: López Simms MD Res ults: 1Negative Date of Service: 09/03/24 Follow Up: 1 Year From Orig inal Mammogram Procedure(s): MM tomosynthesis screening BI Accession Number(s): [id number] cc: López Simms MD EXAMINATION: MM SCREENING [...] 09/11/24 1553 DD/ 0958 TD/TT: 09/03/24 1012 Natural Gas Engineer: Procedure Note Donotuseinterpreter, Image - 09/11/2024 [facility] [address] [place], [place] [address] Mammography Report Signed Patient: Antonio Caicedo#: [id number] : 1975Acct:[id number] Age/Sex: 49 / FADM Date: 09/03/24 Loc: HO.MAMMO Attending Dr: López Sol MD Ordering Physician: López Simms ults: 1Negative Date of Service: 09/03/24Follow Up: 1 Year From Orig inal Mammogram Procedure(s): MM tomosynthesis screening BI Accession Number(s): [id number] cc: López Simms MD EXAMINATION: MM SCREENING [...] 09/11/24 1553 DD/ 0958 TD/TT: 09/03/24 1012 Natural Gas Engineer: us López Sol MD IMG BI PROCEDURES Final Result * Hepatitis C Ab (02/27/2024 2:24 PM EDT) Hepatitis C Antibody Nonreactive Nonreactive [facility] Comment:Antibodies to HCV no t detected; does not exclude early acuteHCV infection. 02/27/2024 2:24 PM EDT 02/27/2024 4:29 PM EDT us Generic External Data Provider LAB BLOOD ORDERAB LES Final Result Performing Organization Address City/[facility]/ZIP Co de Phone Number [facility] [address] [place] [phone] * HIV-1/2 Antigen and Antibodies, Fourth Generation, with Reflexes (02/27/2024 2:24 PM EDT) HIV AB/AG Nonreactive Nonreactive [facility] Comment:HIV-1 p24 Ag and/or HIV-1/HIV-2 Ab not detected.A test result that is nonreactive does not exclude thepossibility of exposure to or infection with HIV-1 and/orHIV-2. Nonreactive results in this assay for individualswith prior exposure to HIV-1 and/or HIV-2 may be due toantigen and antibody levels that are below the limit ofdetection of this assay.The [employer] HIV Ag/Ab Combo assay result andsupplemental assay results should be interpreted inconjunction with the patient's clinical presentation,history and other laboratory results. If the results areinconsistent with clinical evidence, additional testing issuggested to confirm the result. 02/27/2024 2:24 PM EDT 02/27/2024 4:29 PM EDT us Generic External Data Provider LAB BLOOD ORDERAB LES Final Result Performing Organization Address [facility]/ZIP Co de Phone Number [facility] [address] [place] [phone] * (ABNORMAL) Lipid Panel, Standard (10/31/2023 12:46 PM EDT) Triglycerides 135 <150 mg/dL [facility] Comment:Desirable Triglyceri de: less than 150 mg/dLBorderline High Triglyceride 150-199 mg/dLHigh Triglyceride: 200-499 mg/dLVery High Triglyceride: greater than or equal to 5OO mg/dL Cholesterol 220(H) <200 mg/dL [facility] Comment:Desirable Cholestero l: less than 200 mg/dLBorderline High Cholesterol: 200-239 mg/dLHigh Cholesterol: greater than 239 mg/dL LDL Cholesterol Calculated 124(H) <100 mg/dL [facility] Comment:Desirable LDL: less than 100 mg/dLNear Optimal/Above Optimal LDL: 110- 129 mg/dLBorderline High LDL: 130-159 mg/dLHigh LDL: 160-189 mg/dLVery High LDL: greater than or equal to 190 mg/dL HDL Cholesterol 69 >40 mg/dL [facility] Comment:Desirable HDL: great er than 40 mg/dL Note: This HDL assay may give artificially low results in patients with liver disease. Blood Venous blood specimen / Unknown 10/31/2023 12:46 PM EDT 10/31/2023 2:39 PM EDT López Sol MD LAB BLOOD ORDERABL ES Final Result [facility] [address] [place] [phone] * HPV mRNA E6/E7 w/Reflex to HPV Genotypes 16, 18/45 (09/04/2022 10:52 AM EDT) HPV nRNA E6/E7 Not Detected Not Detected [facility] Comment:Methodology: Transcr iption-Mediated AmplificationThis assay detects E6/E7 viral messenger RNA (mRNA) from 14high-risk HPV types (16,18,31,33,35,39,45,51,52,56,58,59,66,68).Cervical sources are required for HPV testing.If a vaginal source from a patient who has had atotal hysterectomy with removal of cervix wassubmitted, please contact the testing laboratoryfor alternative testing options.For additional information, please refer [email or web address](This link if provided for information/educational purposes only.)THIS TEST WAS PERFORMED AT:[facility] [place] [phone] OLVERA MD HPV mRNA E6/E7 TNP [facility] HPV 16 RNA TNP [facility] HPV 18/45 RNA TNP [facility] 09/04/2022 10:5 2 AM EDT 09/04/2022 12:45 PM EDT [facility] External Provider LAB CYT OLOGY ORDERABLES Final Result [facility] [address] [place] [phone] * Pap Smear (09/04/2022 10:52 AM EDT) 09/04/2022 10:5 2 AM EDT 09/04/2022 12:45 PM EDT Narrative [facility] - 09/10/2022 2:18 PM EDT ----- ------- Name: Sherlyn Caicedo Age/Sex: 47/F : 1975 Unit#: [id number] Attend Dr: Jacobo Alex MD Re09/04/22 Status: DEP REF Location: HO.LNP Disch: ----- ------- SPEC : [id number] RECD: 09/04/22 STATUS: MALGORZATA MURPHY NUM: [id number] [place]: 09/04/22-[address] [facility] [address]: Jacobo Alex MD ENTERED: 09/04/22 SP TYPE: Pap Smr OTHR DR: López [...] 59, 66, 68) HPV testing performed by [facility] [facility], [place], [place]. See reference laboratory portion of the EMR for entire report. Clinical Information LMP: 09/04/2022 Previous PAP test: 2018, Unknown Material Received ThinPrep-Cervical Copies To: López Simms MD [address] [place] [phone] Jacobo Alex MD [address] [place], [place] [address] [address] [address] ----- ------- Signed (signature on file) Nini Navarrete 09/10/22 1418 ----- ------- END OF REPORT [facility] External Provider LAB CYT OLOGY ORDERABLES Final Result [facility] [address] [place] [address] [phone] * Hm Colonoscopy (10/18/2021 12:16 PM EDT) Historical Provider HEALTH MAINTENANCE Final Result from Last 3 Months or Most Recently Relevant to Health Maintenance [facility] Care Teams Architectural Model Maker Relationship Specialty Start Date End Date López Simms MD [address] [place] [phone] PCP - General Internal Medicine 11/17/19
--- OUTSIDE RECORDS SUMMARY | 2025-03-10 10:12 | XMS_ITS | Encounter Summary ---
Author Organization [employer] Address [address] [facility] [address] [place] [address] Care Team Providers Care Resident Associate Name Role Phone López Simms MD Primary Care Prov ider Reason for Referral * Consultation (Routine) - Authorized Specialty Diagnoses / Procedures Referred By Caleb albright Referred To Contact Gastroenterology Diagnoses Hepatic steatosis Ray Edge MD [address] [place], [place] Phone: tel: fax: [facility] [address] [place], [place] Phone: tel: fax: Referral ID Status Reason Start Date Expiration Date Visits Requested Visits Authorized [id number] Authorized Specialty Services Required 03/02/2025 03/02/2026 6 6 * Consultation (Routine) - Authorized Specialty Diagnoses / Procedures Referred By Contporfirio t Referred To Contact General Surgery Diagnoses Calculus of gallbladder without cholecystitis without obstruction Ray Edge MD [address] [place], [place] Phone: tel: fax: Billy Fritz MD [address] [place] [address] [place] Phone: tel: fax: Referral ID Status Reason Start Date Expiration Date Visits Requested Visits Authorized [id number] Authorized Specialty Services Required 03/02/2025 03/02/2026 12 12 Encounter Details Date Type Department Care Team (Late st Contact Info) Description 02/28/2025 Orders Only [facility] [address] [place] [address] Ray Edge MD [address] [place] [address] Calculus of gallbladder without cholecystitis without obstruction (Primary Dx); Hepatic steatosis Social History Tobacco Use Types Packs/Day Years [...] of this encounter Plan of Treatment Scheduled Referrals Name Type Priority Associated Diagnoses Orde r Schedule Referral to General Surgery Outpatient Referral Routine Calculus of gallbladder without cholecystitis without obstruction Expected: 02/28/2025 (Approximate), Expires: 02/28/2026 Referral to Gastroenterology Outpatient Referral Routine Hepatic steatosis Expected: 02/28/2025 (Approximate), Expires: 02/28/2026 documented as of this encounter Visit Diagnoses Diagnosis Calculus of gallbladder without cholecystitis without obstruction- Primary Hepatic steatosis Other chronic nonalcoholic liver disease documented in this encounter Additional Health Concerns Assessment Noted Time PHQ-9 Depression Total Score: 2 10/28/19 24 9:26 AM EDT documented as of this encounter Care Teams Resident Associate Relationship Specialty Start Date End Date ClarkeLópez Traore MD [address] [place] [phone] PCP - General Internal Medicine 11/17/19 documented as of this encounter
--- OUTSIDE RECORDS SUMMARY | 2025-03-10 10:12 | XMS_ITS | Encounter Summary ---
Author Organization [employer] Address [address] [place] [address] Care Team Providers Care Police Department Secretary Name Role Phone López Simms MD Primary Care Prov ider Encounter Details Date Type Department Care Team ([facility] st Contact Info) Description 05/14/2024 Orders Only [facility] PEDS [address] [place] [address] ProviderAmber MD Social History Tobacco Use Types Packs/Day Years [...] Procedure Name Priority Date/Time Associated Diagnosis Comments BACTERIAL VAGINOSIS PANEL Routine 05/14/2024 3:43 PM EST CHLAMYDIA/N. GONORRHOEAE RNA, TMA, UROGENITAL Routine 05/14/2024 3:43 PM EST CULTURE, URINE, ROUTINE Routine 05/14/2024 3:[address] ABDOMEN PELVIS W CONTRAST Routine 05/07/2024 8:45 AM EST SURGICAL PATHOLOGY Routine 04/28/2024 8: 47 AM EST documented in this encounter Results * Chlamydia/N. Gonorrhoeae RNA, TMA, Urogenitial (05/14/2024 3:43 PM EST) CT PCR NOT DETECTED Not Detect. [facility] Comment:A not detected test result does [...] psychologicalconsequences. NG PCR NOT DETECTED Not Detect. [facility] Comment:A not detected test result does [...] lead to adverse medical, social or psychologicalconsequences. 05/14/2024 3:43 PM EST 05/14/2024 5:10 PM EST Narrative [facility] - 05/15/2024 2:31 PM EST Vaginal us Generic External Data Provider LAB MICROBIOLOGY - GENERAL ORDERABLES Final Result [facility] [address] [place] [phone] * Bacterial Vaginosis (05/14/2024 3:43 PM EST) TRICHOMONAS VAGINALIS DETECTION BY PCR NOT DETECTED Not Detect [facility] BACTERIAL VAGINOSIS DETECTION BY PCR NEGATIVE Negative [facility] Comment:The BV organism targ ets of [...] of 14. GLEN[employer] DETECTION BY PCR NOT DETECTED Not Detect [facility] Glenny glab krusei PCR NOT DETECTED Not Detect [facility] 05/14/2024 3:43 PM EST 05/14/2024 5:10 PM EST Generic External Data Provider LAB MICROBIOLOGY - GENERAL ORDERABLES Final Result Performing Organization Address [facility] Co de Phone Number [facility] [address] [place] [phone] * Culture, Urine, Routine (05/14/2024 3:43 PM EST) Urine Urine specimen obtained by clean catch procedure / Unknown 05/14/2024 3:43 PM EST 05/14/2024 5:10 PM EST Comment:UACC Narrative [facility] - 05/16/2024 8:41 AM EST Urine Culture Report Result Urine Culture < 10,000 cfu/ml Specimen Source: Urine clean catch Generic External Data Provider LAB MICROBIOLOGY - GENERAL ORDERABLES Final Result Performing Organization Address [facility] de Phone Number [facility] [address] [place] [phone] * CT Abdomen Pelvis w/ Contrast (05/07/2024 8:45 AM EST) Anatomical Region Laterality Modality Body, Pelvis, Abdomen Computed T omography Historical Provider IMG CT PROCEDURES Final R esult * Surgical Pathology (04/28/2024 8:47 AM EST) Historical Provider LAB PATHOLOGY ORDERABLES Final Result documented in this encounter Visit Diagnoses Not on filedocumented in this encounter Additional Health Concerns Assessment Noted Time PHQ-9 Depression Total Score: 2 10/28/19 24 9:26 AM EDT documented as of this encounter Care Teams Police Department Secretary Relationship Specialty Start Date End Date López Simms MD [address] [place] [phone] PCP - General Internal Medicine 11/17/19 documented as of this encounter
--- OUTSIDE RECORDS SUMMARY | 2025-03-10 10:12 | XMS_ITS | Encounter Summary ---
Author Organization [employer] Address [address] [place] [address] Care Team Providers Care Construction Stonemason Name Role Phone López Simms MD Primary Care Prov ider Reason for Visit * Reason Onset Date Comments Chart Prep 03/05/2025 Encounter Details Date Type Department Care Team ([facility] st Contact Info) Description 03/05/2025 Telephone [facility] MED & PEDS [address] [place] [address] López Simms MD [address] [place] [address] Chart Prep Social History Tobacco Use Types Packs/Day Years [...] housing situation today? I have mone ida 10/21/[address] you li [...] AM EDT documented as of this encounter Miscellaneous Notes * Telephone Encounter - Mikayla Mendoza [place] - 03/05/2025 1:26 PM EDT Chart Prep Labs: not done Images: done Referrals: appointment pending Vaccines due: PCV20, Hep B, and Hep A Screenings: LMP Overdue care gaps: SBIRT, SDOH, PHQ-9, Oral health screening, Disability screen, and Tobacco documented in this encounter Plan of Treatment Not on file documented as of this encounter Visit Diagnoses Not on filedocumented in this encounter Additional Health Concerns Assessment Noted Time PHQ-9 Depression Total Score: 2 10/28/19 24 9:26 AM EDT documented as of this encounter Care Teams Construction Stonemason Relationship Specialty Start Date End Date López Simms MD [address] [place] [phone] PCP - General Internal Medicine 11/17/19 documented as of this encounter
--- OUTSIDE RECORDS SUMMARY | 2025-03-10 10:12 | XMS_ITS | Encounter Summary ---
Author Organization [email or web address] Address [address] [place] [address] Care Team Providers Care Vice President Global Digital Marketing Name Role Phone López Simms MD Primary Care Prov ider Encounter Details Date Type Department Care Team ([facility] st Contact Info) Description 10/11/2023 Orders Only [facility] MEDICINE [address] [place] [address] ProviderAmber MD Social History Tobacco Use Types Packs/Day Years Used Date Smoking Tobacco: Never Passive Smoke Exposure: Never Smokeless Tobacco: Never Alcohol Use Standard Drinks/Week Comments Never 0 (1 standard drink = 0.6 oz pur e alcohol) Depression Answer Date Recorded Patient Health Questionnaire-9 Score 17 09/28/2022 Housing Stability Answer Date Recorded What is your housing situation today? I have moneannamaria prieto 04/08/[address] you li ve. Do you have problems with any of the following? None of the above 04/08/2023 Food Insecurity Answer Date Recorded Within the past 12 months, y ou worried that your food would run out before you got money to buy more: Sometimes True 2022 Within the past 12 months,th e food you bought just didn't last and you didn't have enough money to get more: Never True 04/08/2023 Transportation Answer Date Recorded In the past 12 months, has l ack of transportation kept you from medical appts, meetings, work or from getting things needed for daily living? No 04/08/2023 Utilities Answer Date Recorded In the past 12 months, has t he electric, gas, oil or water company threatened to shut off services in your home? No 04/08/2023 Depression Answer Date Recorded Patient Health Questionnaire-2 Score 6 09/28/2022 Comments Unknown Sex and Gender Information Value Date Recorded Sex Assigned at Female 04/23/2022 10:16 AM EDT Legal Sex Female 10:16 AM EDT Gender Identity Female 04/23/2022 10:16 AM EDT Sexual Orientation Straight 04/23/2022 10 :16 AM EDT documented as of this encounter Plan of Treatment Not on file documented as of this encounter Procedures Procedure Name Priority Date/Time Associated Diagnosis Comments HM COLONOSCOPY Routine 10/18/2021 12:16 PM EDT documented in this encounter Results * Hm Colonoscopy (10/18/2021 12:16 PM EDT) Historical Provider HEALTH MAINTENANCE Final Result documented in this encounter Visit Diagnoses Not on filedocumented in this encounter Additional Health Concerns Assessment Noted Time PHQ-9 Depression Total Score: 17 023 9:29 AM EDT documented as of this encounter Care Teams Vice President Global Digital Marketing Relationship Specialty Start Date End Date López Simms MD [address] [place] [phone] PCP - General Internal Medicine 11/17/19 documented as of this encounter
[2025-03-10 14:44] LABS: Alanine Aminotransferase 23 U/L (0-31); Albumin Level 4.7 g/dL (3.5-5.0); Alkaline Phosphatase 94 U/L (39-117); Anion Gap 11 (12-20); Aspartate Amino Transferase 28 U/L (5-31); Blood Urea Nitrogen 15 mg/dL (9-16); Calcium 9.7 mg/dL (8.4-10.2); Carbon Dioxide 30 mmol/L (22-29); Chloride 104 mmol/L (96-108); Estimated Glomerular Filt Rate > 60; Lipase 51 U/L (8-78); Potassium 4.0 mmol/L (3.3-5.1); Sodium 141 mmol/L (135-145); Total Protein 8.0 g/dL (6.5-8.0)
[2025-03-10 15:14] LABS: Folate 11.9 ng/mL (> or = 4.0); Vitamin B12 439 pg/mL (200-900)
== END 2025-03-10 08:45 | disposition home or self-care (01) ==
LOC: HO.CHCLDS 08:44
PROVIDERS: PCP Internal Medicine; Referring Provider Internal Medicine; Visit Provider Internal Medicine
DX: K76.0 Fatty (change of) liver, not elsewhere classified (principal); R10.84 Generalized abdominal pain
CPT/HCPCS: 36415; 80053; 82607; 82746; 83690; 84443

== ENCOUNTER 2025-04-01 13:55 | Outpatient (AMB) | payer MEDICAID, SELFPAY ==
--- NOTE | 2025-04-01 13:56 | MHC.OFFVIS ---
Vital Signs 04/01/25 14:12 Height 5 ft 2 in Weight 172 lb BMI 31.5 Intake Visit Reasons: calculus of gall bladder Intake Note: This patient was referred by for an assessment for calculus of the gallbladder. Pt c/o: intermittent pain. Pharmacist Per Diem Required: Yes Pharmacist Per Diem Language: Clinical Application Manager Name: DebiOsman Information Interpreted: non-clinical & clinical Accompanied by: yakut Allergies No Known Allergies Allergy (Verified 04/01/25 14:20) Medication List - Last Reviewed 04/01/25 by JLUIS Gonzalez bupropion HCl XL 150 mg PO QAM famotidine 20 mg PO BID hydroxyzine HCl 50 mg PO BEDTIME omeprazole 20 mg PO DAILY 7 days HPI HPI calculus of gall bladder: Details: 49-year-old female referred for gallstones. She went to her primary care physician more than a month ago because of an episode of upper abdominal discomfort after eating. She had an ultrasound done at that time at the PCPs office and this showed gallstones with a inflammation She says she has had no further episodes. She says she has good oral intake. She denies any significant GI complaints. She has no significant medical problems. She has a history of hysterectomy. [facility] Medical History (Updated 04/01/25 @ 14:21 by Billy Fritz MD) Gallstones Surgical History (Updated 04/01/25 @ 14:21 by JLUIS Gonzalez) History of hemorrhoidectomy History of hysterectomy Family History (Updated 04/01/25 @ 14:21 by JLUIS Gonzalez) Other Colon cancer Stomach cancer Social History Alcohol intake: current Alcohol intake frequency: holidays/special occasions only Patient Tobacco Use Status: Never used Tobacco Review of Systems Const Denies chills and Denies fever(s) Card Denies chest pain, Denies dyspnea and Denies dyspnea on exertion Resp Denies cough, Denies dyspnea and Denies dyspnea on exertion GI Denies hematochezia and Denies change in bowel habits Denies hematuria Musc Denies back pain and Denies limited range of motion Neuro Denies focal weakness and Denies convulsions Psych Denies depression and Denies mood swings Physical Exam Vital Signs: BMI result Body Mass Index 31.5 Const General: comfortable and no acute distress Orientation/consciousness: patient oriented x3 Neck Neck: Yes no lymphadenopathy Resp Auscultation: clear to auscultation bilaterally Cardio Rhythm: regular rhythm GI Palpation (GI): Soft to palpation, nontender and no guarding Neuro General: patient oriented x3 Assessment & Plan Assessment & Plan (1) Gallstones: Code(s): K80.20 - Calculus of gallbladder without cholecystitis without obstruction Category: Medical Plan: She had an ultrasound last 02/24/2025 showing gallstones. I explained to her the option of proceeding with cholecystectomy. I explained the technique of laparoscopic cholecystectomy and possible conversion to open. I reviewed the risks including but not limited to bleeding, infections, injury to the bile duct, liver and bowel, bile leak, retained stones, as well as the benefits and alternatives. I explained to her what to expect postoperatively She says that she really did not have severe pain at that time and describes this more of discomfort. She says she has had no episodes since then. She says that she would like to hold off on any surgery at this time. I did tell her that she should come back to the office if this becomes recurrent. Coding Level of Care Code New Pt Level 3 (89683) Diagnoses Gallstones K80.20
[2025-04-01 14:12] VITALS: BMI 31.5
== END 2025-04-01 14:28 | disposition home or self-care (01) ==
LOC: HO.HGS 13:55
PROVIDERS: PCP Internal Medicine; Referring Provider Internal Medicine; Visit Provider Surgery
DX: K80.20 Calculus of gallbladder without cholecystitis without obstruction (principal)
CPT/HCPCS: 99203

== ENCOUNTER → 2025-04-01 13:55 | Outpatient (BNVA) | payer MEDICAID, SELFPAY | PROVIDERS: PCP Internal Medicine; Visit Provider Surgery | DX: K80.20 Calculus of gallbladder without cholecystitis without obstruction (principal) | CPT/HCPCS: 99202 ==